=== PATIENT | female | born 1970 | race Caucasian/White ===

== ENCOUNTER 2017-10-10 10:00 | Inpatient (IN) | payer SELFPAY ==
[~2017-10-10] VITALS: Ht 165.1 cm; Wt 66.7 kg
[2017-10-10 12:37] VITALS: BP 137/84
[2017-10-11] VITALS (22 sets, daily range): BP systolic 98–141; BP diastolic 51–77
[2017-10-11] MEDS ORDERED: LACTATED RINGERS 1000ML 1,000 ML IV SCH (06:00)
[2017-10-11] MEDS: CEFAZOLIN SODIUM 1 GM VIAL IVP SCH ×2 (06:00→07:50)
[2017-10-11] MEDS ORDERED: ONDANSETRON HCL 4 MG/2 ML VIAL ONE (07:32)
[2017-10-11] MEDS ORDERED: SUCCINYLCHOLINE 200MG/10ML SYR ONE (07:32)
[2017-10-11] MEDS ORDERED: PROPOFOL 10 MG/ML 20ML VIAL IV ONE (07:32)
[2017-10-11] MEDS ORDERED: GLYCOPYRROLATE 0.2 MG/ML 5 ML VIAL ONE (07:32)
[2017-10-11] MEDS ORDERED: NEOSTIGMINE METHYLSULFATE 1MG/ML IV ONE (07:32)
[2017-10-11] MEDS ORDERED: DEXAMETHASONE SOD PHOSPHATE 10MG/ML 1ML VIAL ONE (07:32)
[2017-10-11] MEDS ORDERED: LIDOCAINE PF 2% 5ML ABBOJECT ONE (07:32)
[2017-10-11] MEDS ORDERED: MIDAZOLAM HCL 1 MG/ML 2ML VIAL ONE (07:33)
[2017-10-11] MEDS ORDERED: FENTANYL CITRATE PF 50 MCG/1 ML 2ML VIAL ONE ×3 (07:35→10:56)
[2017-10-11 07:48] LABS: HEMATOCRIT 24.3 % (36-48); MEAN CORPUSCULAR HEMOGLOBIN 29.6 pg (27.0-33.0); MEAN CORPUSCULAR HGB CONC 34.3 g/dL (32.0-36.0); MEAN CORPUSCULAR VOLUME 86.3 fL (79-99); PLATELET COUNT (AUTO) 202 K/uL (130-400); RED BLOOD CELL COUNT(AUTO) 2.81 MIL/uL (4.00-5.50); RED CELL DISTRIBUTION WIDTH 13.4 % (11.0-15.5); WHITE BLOOD COUNT (AUTO) 5.8 K/uL (4.8-10.8)
[2017-10-11] MEDS ORDERED: MORPHINE SULFATE 10 MG/ML 1ML SYG ONE ×2 (10:13→10:29)
[2017-10-11] MEDS ORDERED: SIMETHICONE 80 MG TAB.CHEW PO PRN (10:30)
[2017-10-11] MEDS ORDERED: BISACODYL 10 MG SUPP.RECT RC PRN (10:30)
[2017-10-11] MEDS ORDERED: MEPERIDINE-PF 25 MG/ML SYG ONE ×2 (10:41→10:49)
[2017-10-11] MEDS ORDERED: MORPHINE SULFATE 2 MG/ML 1ML SYG IVP PRN (12:30)
[2017-10-11] MEDS ORDERED: PROMETHAZINE HCL 25 MG/ML 1ML AMPULE IM PRN ×2 (14:30→19:00)
[2017-10-11] MEDS ORDERED: MEPERIDINE-PF 50 MG/ML SYG IM PRN (14:30)
[2017-10-11] MEDS: PROMETHAZINE HCL 25 MG/ML 1ML AMPULE IM PRN ×2 (15:09→21:02)
[2017-10-11] MEDS: LACTATED RINGERS 1000ML 1,000 ML IV SCH (19:54)
[2017-10-11] MEDS: MEPERIDINE-PF 75 MG/ML SYG IM PRN (21:03)
[2017-10-12 03:07] VITALS: BP 120/73
[2017-10-12] MEDS: LACTATED RINGERS 1000ML 1,000 ML IV SCH (03:16)
[2017-10-12] MEDS: PROMETHAZINE HCL 25 MG/ML 1ML AMPULE IM PRN (03:28)
[2017-10-12] MEDS: MEPERIDINE-PF 75 MG/ML SYG IM PRN (03:28)
[2017-10-12] MEDS: FLU VACC QS2017-18 36MOS UP/PF 60 MCG/0.5 ML ML IM SCH ×2 (06:37→06:54)
[2017-10-12 06:58] LABS: HEMATOCRIT 28.1 % (36-48); MEAN CORPUSCULAR HEMOGLOBIN 28.9 pg (27.0-33.0); MEAN CORPUSCULAR HGB CONC 33.9 g/dL (32.0-36.0); MEAN CORPUSCULAR VOLUME 85.5 fL (79-99); PLATELET COUNT (AUTO) 232 K/uL (130-400); RED BLOOD CELL COUNT(AUTO) 3.28 MIL/uL (4.00-5.50); RED CELL DISTRIBUTION WIDTH 13.6 % (11.0-15.5); WHITE BLOOD COUNT (AUTO) 7.3 K/uL (4.8-10.8)
[2017-10-12 07:23] VITALS: BP 121/74
[2017-10-12] MEDS: SIMETHICONE 80 MG TAB.CHEW PO PRN ×4 (09:29→21:09)
[2017-10-12] MEDS: DOCUSATE SODIUM 100 MG CAP PO PRN ×2 (09:29→21:09)
[2017-10-12] MEDS: IBUPROFEN 600 MG TABLET PO PRN ×2 (09:31→18:17)
[2017-10-12] MEDS: ACETAMINOPHEN-CODEINE 300/30MG TAB PO PRN ×2 (09:33→16:09)
[2017-10-12 11:29] VITALS: BP 111/73
[2017-10-12 15:52] VITALS: BP 110/64
[2017-10-12 19:21] VITALS: BP 117/71
[2017-10-13 00:25] VITALS: BP 94/53
[2017-10-13] MEDS: IBUPROFEN 600 MG TABLET PO PRN ×2 (00:32→09:10)
[2017-10-13 03:32] VITALS: BP 88/53
[2017-10-13 07:31] VITALS: BP 98/58
[2017-10-13] MEDS: DOCUSATE SODIUM 100 MG CAP PO PRN (09:08)
[2017-10-13] MEDS: SIMETHICONE 80 MG TAB.CHEW PO PRN (09:08)
== END 2017-10-13 10:47 | disposition home or self-care (01) | DRG 743 ==
LOC: EDSTATUS 10:00 → DAHIP 10-11 06:15 → WSH 10-11 11:35
PROVIDERS: ADMIT Obstetrics & Gynecology; ATTEND Obstetrics & Gynecology
PROC: 0UT90ZZ Resection of Uterus, Open Approach (ICD-10-PCS; principal; 2017-10-11 07:44)
PROC: 0UT70ZZ Resection of Bilateral Fallopian Tubes, Open Approach (ICD-10-PCS; 2017-10-11 07:44)
DX: D25.9 Leiomyoma of uterus, unspecified (principal)
CPT/HCPCS: 36415; 84703; 85027; 86850; 86900; 86901; 88307; A4218; A4344; J0330; J0690; J1100; J2001; J2175; J2250; J2270; J2405; J2550; J2704; J2710; J3010; J3490; J7030; J7120; Q2038